=== PATIENT | female | born 1945 | race Caucasian/White ===

== ENCOUNTER 2021-08-25 10:04 | Outpatient (RCR) | payer MEDICARE, SELFPAY ==
[2021-08-25 15:31] VITALS: BP 118/45; PULSE 78; RESP 20; TEMP 37.2; O2SAT 94
[2021-08-25] MEDS: FAMOTIDINE 20 MG TABLET PO (15:35)
[2021-08-25] MEDS: ACETAMINOPHEN 325 MG TABLET 650 MG PO (15:35)
[2021-08-25] MEDS: diphenhydrAMINE HCl CAP 25 MG CAPSULE PO (15:35)
[2021-08-25 16:48] VITALS: BP 126/45
== END 2021-08-25 17:00 | disposition home or self-care (01) ==
LOC: AMCINF 10:04
PROVIDERS: PCP Internal Medicine; Visit Provider Internal Medicine Hematology & Oncology
DX: U07.1 COVID-19 (principal); I10 Essential (primary) hypertension; J44.9 Chronic obstructive pulmonary disease, unspecified
CPT/HCPCS: A9270; M0243; Q0244

== ENCOUNTER → 2023-03-23 12:48 | Outpatient (CLI) | payer MEDICARE, SELFPAY ==
--- NOTE | ~2023-03-23 | XR_ITS ---
XR chest 2V 03/23/2023 13:21 Indication: Shortness of breath Procedure: 2 view chest Comparison: 09/20/2019 Findings: There is infrahilar nodular density. There is left basilar atelectasis. No edema, focal pne umonia pleural effusion or pneumothorax. Impression: 1: Right infrahilar nodular density. Follow-up CT chest recommended. Reviewed, dictated and finalized at location A. Impression: 1: Right infrahilar nodular density. Follow-up CT chest recommended.
== END ==
PROVIDERS: PCP Internal Medicine; Visit Provider Nurse Practitioner Adult Health
DX: R06.02 Shortness of breath (principal); R91.8 Other nonspecific abnormal finding of lung field
CPT/HCPCS: 71046

== ENCOUNTER 2023-04-05 07:15 | Outpatient (RCR) | payer MEDICARE, SELFPAY | END 2023-04-05 09:18 | disposition home or self-care (01) | LOC: ANHCPREHAB 07:15 | PROVIDERS: PCP Internal Medicine; Visit Provider Internal Medicine Cardiovascular Disease | DX: Z95.5 Presence of coronary angioplasty implant and graft (principal) | CPT/HCPCS: 93798 ==